=== PATIENT | male | born 1980 | race Hispanic/Latino ===

== ENCOUNTER 2018-05-15 21:42 | Emergency (ER) | payer OTHER ==
[2018-05-15] MEDS ORDERED: HYDROCODONE/ACETAMINOPHEN 10/325 MG TAB ONE (22:24)
[2018-05-15] MEDS ORDERED: KETOROLAC TROMETHAMINE 30MG/ML ONE (22:24)
== END 2018-05-15 23:03 | disposition home or self-care (01) ==
LOC: EDH 21:42
DX: K02.9 Dental caries, unspecified (principal); R68.84 Jaw pain; Z72.0 Tobacco use
CPT/HCPCS: 96372; 99283; J1885